=== PATIENT | female | born 1940 | race Caucasian/White ===

== ENCOUNTER 2022-03-09 08:14 | Day surgery (SDC) | payer MEDICARE, BC ==
[~2022-03-09] VITALS: Ht 165.1 cm; Wt 59.1 kg
[~2022-03-09 08:14] MED LIST: ASACOL HD800 MG PO; DIPH25 PO; EUTHYROX75 MC1 PO; HYDR1TAB94 PO; INSLIS75I; JANTOVEN10 M2 PO; Jantoven10 MG PO; LEVSOD75; LEVSOD75 PO; MESALAMINE DR400 MG PO; PNV-DHA SOFTGE1 EACH PO; PROP10 PO; SUMA20NI; TOPI25 PO; WARF10 PO; WARF5 PO; [UNRECOGNIZED DRUG - MIXTURE] PO
--- NOTE | 2022-03-09 09:49 | NUR ---
Ambulatory in Day Surgery. History, Chart, Medications and Allergies reviewed before start of procedure. Lungs clear T/O to Auscultation. ADMITTED TO UNIT.
--- NOTE | 2022-03-09 09:50 | NUR ---
TURNED CARE OVER TO MIRANDA STRAUSS
--- NOTE | 2022-03-09 09:55 | NUR ---
REPORT FROM EDD MURCIA RN. PT AXOX4, ABLE TO REPOSITION SELF IN BED. RESTING COMFORTABLY IN BED, VISITING WITH AT BEDSIDE.
--- NOTE | 2022-03-09 14:28 | NUR ---
PATIENT CAME BACK FROM PACU TODAY 03/09/22 AT 1400. POD 0 LEFT TOTAL HIP PATIENT IS A&OX4. VS ARE WNL AND IS ON RA. PATIENT DENIES PAIN AT THIS TIME. LEFT HIP HAS X3 GAUZE AND FOAM TAPE THAT ARE ALL C/D/I. SHE IS ABLE TO MOVE FINGERS AND TOES WHEN ASKED. DENIES NUMBNESS OR TINGLING IN ALL EXTREMITIES. SHE IS TOLERATING SMALL AMOUNTS OF PO INTAKE. FAMILY AT BEDSIDE. CALL LIGHT IS WITHIN REACH.
--- NOTE | 2022-03-09 14:56 | NUR ---
Spiritual Care requested by attending nurse Edna Diaz Pt. is sitting up in bed, eating applesauce and Pts. daughter is present. Pt. welcomes me into the room. Pt. was admitted following surgery, and is pleasant. Pt. verbalizes expectation fo being discharged tomorrow (March 10). Committed to pray for Pt. Both the Pt. and daughter verbalized gratitude for the spiriutal care visit.
[2022-03-09 15:20] LABS: International Normalized Ratio 1.11; Prothrombin Time Results 11.6 Sec (9.7-11.5)
--- NOTE | 2022-03-09 16:27 | NUR ---
SHIFT SUMMARY: POD 0 LEFT TOTAL HIP NO SIGNIFICANT CHANGES SINCE POST OP. SHE HAS WORKED WITH PT AND WAS A SBA WITH FWW AND GAIT BELT. LEFT HIP HAS 3 FOAM AND GAUZE DRESSINGS THAT ARE C/D/I. DENIES NUMBNESS AND TINGLING. PATIENT ALSO DENIES PAIN BUT IS TAKING THE SCHEDULED TORADOL AND TYLENOL. SHE IS TOLERATING PO INTAKE. PATIENT HAS YET TO VOID. ENCOURAGING PO INTAKE TO INCREASE THE WANT TO URINATE. FAMILY IS AT BEDSIDE. CALL LIGHT WITHIN REACH. THE PLAN IS TO WORK WITH PT AGAIN TOMORROW AND TO HAVE PAIN MANAGED. THEN SHE WILL POSSIBLY BE DISCHARGED HOME TOMORROW IF APPROPRIATE.
[2022-03-10 04:11] LABS: BASOPHILS ABSOLUTE AUTO 0.04 K/mm3 (0.00-0.23); BASOPHILS PERCENT AUTO 0 % (0-2); EOSINOPHILS ABSOLUTE AUTO 0.01 K/mm3 (0.00-0.68); EOSINOPHILS PERCENT AUTO 0 % (0-6); Hematocrit 34.2 % (33.0-51.0); Hemoglobin 11.5 g/dL (11.5-16.0); IMMATURE GRAN ABSOLUTE AUTO 0.05 K/mm3 (0.00-0.10); IMMATURE GRAN PERCENT AUTO 0 % (0-1); LYMPHOCYTES ABSOLUTE AUTO 1.16 K/mm3 (0.84-5.20); LYMPHOCYTES PERCENT AUTO 8 % (21-46); MONOCYTES ABSOLUTE AUTO 1.66 K/mm3 (0.16-1.47); MONOCYTES PERCENT AUTO 11 % (4-13); Mean Corpuscular HGB Conc 33.6 g/dL (31.5-36.5); Mean Corpuscular Volume 101 fL (80-100); NEUTROPHILS ABSOLUTE AUTO 11.58 K/mm3 (1.96-9.15); NEUTROPHILS PERCENT AUTO 80 % (41-73); Platelet Count 253 K/mm3 (150-400); RDW Coefficient Variation 13.3 % (11.7-14.2); RDW Standard Deviation 49.8 fL (35.1-46.3); Red Blood Cell Count 3.38 M/mm3 (3.80-5.20)
[2022-03-10 04:27] LABS: International Normalized Ratio 1.09; Prothrombin Time Results 11.4 Sec (9.7-11.5)
--- NOTE | 2022-03-10 04:27 | NUR ---
AT 0350 THIS NURSE WENT TO PT ROOM TO GIVE SCHEDULED IV ANTIBIOTICS AND TORADOL. PT ASKED TO USE BATHROOM. ASSISTED PT TO BR WITH FWW. WHILE LOGGING ON TO COMPUTER THIS NURSE HERD A THUMP AGAINST THE WALL. THE PT TRIED TO STAND ON THIER OWN AND GRABBED THE RAIL INSIDE OF THE BR. THIS NURSE AND TREASURY ASSISTANT MANUEL STEADIED THE PT BUT COULD NOT GET A RESPONSE OTHER THAN THE PT STATING "I'M HUNGRY." THIS NURSE AND TREASURY ASSISTANT MANUEL ASSISTED THE PT GENTLY TO THE FLOOR AND CALLED A RAPID RESPONSE. PT APPEARED TO HOLD BREATH FOR A FEW SECONDS AND REQUIRED A STERNAL RUB TO RESPOND TO NAME. WHEN RAPID RESPONSE TEAM ARRIVED PT AGAIN STATED "I'M HUNGRY," BUT NOTHING ELSE. DURING THIS TIME VITAL SIGNS WERE OBTAINED, PT WAS 143/96 AND HR WAS IN THE MID 60S, O2 WAS >90% ON RA. AFTER A FEW MINUTES PT BECAME RESPONSIVE AND ANSWERED QUESTIONS. THIS NURSE AND RAPID TEAM ASSISTED PT TO BED AND VITALS WERE AGAIN OBTAINED, BP 107/54 AND HR IN THE 60S, O2 >90% ON RA. MD ORDERED MAINTENANCE FLUIDS 1000ML NS @ 100 ML/HR, EKG AND CARDIAC TELEMETRY. ASSESSED PT AT 0450 AFTER FLUIDS STARTED AND IV ABX GIVEN, PT WAS A&O AND WATCHING TELEVISION, APPEARS COMFORTABLE.
[2022-03-10 04:37] LABS: Bun/Creatinine Ratio 20.5 (12.0-20.0); Calcium, Blood 8.3 mg/dL (8.5-10.1); Creatinine, Blood 0.58 mg/dL (0.40-1.00); Potassium, Blood 3.7 mmol/L (3.5-5.5)
--- NOTE | 2022-03-10 06:18 | NUR ---
PT IS A&OX4, MOD ALKA IN BED AND CALLS APPROPRIATELY. PT POST OP DAY 1 FOR L TOTAL HIP REPLACEMENT, CSM IS INTACT, DENIES PAIN. PT TAKES MEDS WHOLE WITH THINS AND IS ABLE TO MAKE NEEDS KNOWN. PT HAD SYNCOPAL EVENT THIS NIGHT AT 0350, PT WOKE TO USE BR AND HAD TO BE ASSISTED TO THE FLOOR AFTER TRYING TO GET UP. RR WAS CALLED AND PT WAS ASSESSED BY MD. PT THEN HELPED TO BED AND PLACED ON BEDREST AND WILL BE ASSESSED BY MD IN THE AM. WILL CONTINUE TO MONITOR THIS PT AND GIVE REPORT TO ONCOMING NURSE.
[2022-03-10] MEDS ORDERED: ENOX40I SC (10:08)
[2022-03-10] MEDS ORDERED: OXAYDO5 M2 PO (10:08)
[2022-03-10] MEDS ORDERED: SULTRIDS PO (10:09)
--- NOTE | 2022-03-10 10:54 | NUR ---
DISCHARGE SUMMARY PT'S IV DCED W/ CATHETER INTACT AND NO REDNESS OR INFLAMMATION AT THE IV SITE. PT TEACHING PROVIDED W/ PT ACKNOWLEDGING UNDERSTANDING AND SIGNING WHERE APPROPRIATE. PT DRESSED W/ ASSISTANCE OF OCCUPATIONAL THERAPY. PT'S ROOM CLEARED OF BELONGINGS, WHICH WERE CARRIED OUT BY FAMILY. PT ASSISTED TO WHEELCHAIR AND ESCORTED OUT OF FACILITY BY STAFF. PT ASSISTED FROM WHEELCHAIR TO CAR W/O INCIDENT AND DEPARTED POV.
== END 2022-03-10 10:58 | disposition home or self-care (01) ==
LOC: SURS 08:14 → ORSCMMR 08:14 → ORD 10:45 → ORSCMMR 14:00 → ORD 14:00 → SURS 14:11 → ORSCMMR 03-10 10:58
PROVIDERS: Orthopaedic Surgery
PROC: 0SRB0JA Replacement of Left Hip Joint with Synthetic Substitute, Uncemented, Open Approach (ICD-10-PCS; principal; 2022-03-09 10:30)
PROC: 8E0YXBZ Computer Assisted Procedure of Lower Extremity (ICD-10-PCS; principal; 2022-03-09 10:30)
DX: M16.12 Unilateral primary osteoarthritis, left hip (principal); Z86.718 Personal history of other venous thrombosis and embolism; Z79.01 Long term (current) use of anticoagulants; E03.9 Hypothyroidism, unspecified; I10 Essential (primary) hypertension; Z79.899 Other long term (current) drug therapy
CPT/HCPCS: 36415; 72170; 80048; 82947; 83735; 84484; 85025; 85610; 93005; 93010; 97110; 97116; 97162; 97166; 97530; 97535; A9270; C1713; C1776; J0171; J0690; J0735; J1100; J1650; J1885; J2370; J2405; J2704; J2795; J3010; J7030; J7120

== ENCOUNTER 2022-09-29 08:28 | Day surgery (SDC) | payer MEDICARE, BC ==
[~2022-09-29] VITALS: Ht 165.1 cm; Wt 61.4 kg
[~2022-09-29 08:28] MED LIST changes: +ENOX40I SC; +FURO40 PO; +JANTOVEN7.5 M2 PO; +KLOR-CON M1010 MEQ PO; +OXAYDO5 M2 PO; +SULTRIDS PO
--- NOTE | 2022-09-29 11:10 | NUR ---
patient returned to [facility] recovery room. alert and responds appropriately. left groin soft and nontender dressing D&I. no hematoma. no bleeding. right wrist site with bruising no no swelling, no bleeding. dressing in place.
--- NOTE | 2022-09-29 13:50 | NUR ---
Dr Hunter here to discuss procedure with patient and family
--- NOTE | 2022-09-29 14:51 | NUR ---
HOB up 35-40 degrees. patient resting easily and visiting with family. left groin site unchanged.
--- NOTE | 2022-09-29 15:32 | NUR ---
patient up and ambulated in recovery room. returned to bed. left groin site unchanged.
--- NOTE | 2022-09-29 16:16 | NUR ---
patient at bed side dressed with minimal assist. left groin remains soft and nontender dressing D&I. no hematoma, no bleeding. right wrist stable unachanged cloth dot dressing in place. IV site dced with catheter intact. patient and family verbalized understanding of discharge instructions and precautions. no further questions. patient transferred via wheel chair to waiting vehicle. driving
== END 2022-09-29 15:50 | disposition home or self-care (01) ==
LOC: MHTC 08:28
DX: I25.10 Atherosclerotic heart disease of native coronary artery without angina pectoris (principal); I35.0 Nonrheumatic aortic (valve) stenosis; E03.9 Hypothyroidism, unspecified; G43.909 Migraine, unspecified, not intractable, without status migrainosus
CPT/HCPCS: 76937; 93454; 99152; 99153; A9270; C1760; C1769; C1894; J1644; J2250; J3010; J7030; J7050; Q9967

== ENCOUNTER 2024-02-16 18:40 | Emergency (ER) | payer MEDICARE, BC ==
[~2024-02-16] VITALS: Ht 154.9 cm; Wt 61.2 kg
[2024-02-16 18:54] VITALS: BP 151/77
[2024-02-16] MEDS ORDERED: Diphth,Pertuss(Acell),Tet Vac 0.5 ML VIAL IM ONE (19:45)
== END 2024-02-21 20:30 | disposition home or self-care (01) ==
LOC: ER 18:40
DX: S52.514A Nondisplaced fracture of right radial styloid process, initial encounter for closed fracture (principal); W18.30XA Fall on same level, unspecified, initial encounter; Z79.899 Other long term (current) drug therapy; Z79.01 Long term (current) use of anticoagulants; G43.909 Migraine, unspecified, not intractable, without status migrainosus
CPT/HCPCS: 12002; 29125; 73110; 90471; 90715; 99283-25; L3917